=== PATIENT | female | born 1990 | race Caucasian/White ===

== ENCOUNTER 2023-12-26 13:32 | Emergency (ER) | payer BC, SELFPAY ==
--- NOTE | ~2023-12-26 | CT_ITS ---
EXAMINATION: CTA brain carotid DATE: 12/26/2023 15:37 INDICATION: double vision TECHNIQUE: Computed tomographic angiography (CTA) of the head was performed without and with 100 mL O mnipaque-350 intravenous contrast. CTA of the neck was performed with intravenous contrast. Automated exposure control and iterative reconstruction technique were employed. The dose-length product was 1 658.67 mGy-cm. Maximum intensity projection and volume rendered 3D-reconstructions were created by kirk land technologist on a separate workstation. COMPARISON: None. FINDINGS: CT BRAIN: No acute large vessel infarct, intracranial hemorrhage, mass, or hydrocephalus. Small retention cyst or polyp in the right middle ethmoid sinus. Minimal right sphenoid mucosal thickening. CTA HEAD: No large vessel occlusion, aneurysm, high flow vascular malformation, nidus or extravasation. CTA NECK: Aortic arch and proximal great vessels: Atherosclerotic calcifications at the visualized aortic arch and proximal great vessels. Right common carotid, carotid bifurcation, and internal carotid artery: No plaque.There is 0% stenosi s of the proximal right internal carotid artery relative to normal distal artery lumen diameter (NASC ET criteria). Left common carotid, carotid bifurcation, and internal carotid artery: No plaque.There is 0% stenosis of the proximal left internal carotid artery relative to normal distal artery lumen diameter (NASCET criteria). Vertebral arteries: No significant plaque or stenosis. Vertebral arteries co-dominant. Other findings: None. IMPRESSION: No large vessel intracranial occlusion, high-grade intracranial stenosis, or aneurysm. No carotid or vertebral artery occlusion, dissection, or significant stenosis. Reviewed, dictated and finalized at location K. IMPRESSION: No large vessel intracranial occlusion, high-grade intracranial stenosis, or an eurysm. No carotid or vertebral artery occlusion, dissection, or significant stenosis.
--- NOTE | ~2023-12-26 | XR_ITS ---
EXAMINATION: XR chest 1V portable Exam Date/Time: 12/26/2023 15:50 CDT HISTORY: dizziness, DOUBLE VISION Comparison: None. RESULT: Lines, tubes, and devices: None. Lungs and pleura: Clear. Cardiomediastinal silhouette: Normal. Other: No acute osseous or upper abdominal finding. IMPRESSION: No acute cardiopulmonary process. Reviewed, dictated and finalized at location K.
[2023-12-26 13:35] VITALS: BP 136/90; PULSE 84; RESP 16; TEMP 36.8; O2SAT 100
--- NOTE | 2023-12-26 14:39 | ED.EYEPROB ---
HPI - Eye Problem General Chief complaint: Eye Problems Stated complaint: visual problem Time Seen by Provider: 12/26/23 14:38 Source: patient and family Mode of arrival: ambulatory Limitations: no limitations History of Present Illness HPI Narrative: 33 years old white female came to the ED by private car with her because of right eye double vision. Patient reports history of dizziness, everything aches pains, intermittent, no aggravating or relieving factor started 6 days ago, was seen by her family physician started on meclizine without any improvement, scheduled to see ENT next week. Patient reports some blurry vision at the left eye since in the dizziness started scheduled to see her eye doctor next week. Today was driving taking the kids to school activities, started feeling blurry vision to the right eye and everything is doubled. Patient pulled over and her symptoms did not get better. Patient uses bifocal. Currently patient complaining of right double vision with moving object across visual field. Patient is telling me in the last few days been stumbling and falling over, denies any headache. History of migraine headache last episode was October 2023, patient believed this symptoms has nothing to do with her migraine headache. She denies any fever, chills,, vomiting, diarrhea, constipation, chest pain,OR shortness of breath. Related Data Allergies Allergy/AdvReac Type Severity Reaction Status Date / Time bupropion [From Wellbutrin] Allergy Unknown Verified 12/26/23 14:29 metoclopramide [From Reglan] Allergy Unknown Verified 12/26/23 14:29 Review of Systems Review of Systems: All systems reviewed & are unremarkable except as noted in HPI and below Exam Narrative: General appearance: Well-developed, well-nourished Patient cannot tolerate light barreto I hurt Skin: Normal color Head: Normocephalic, nontraumatic Eyes: Clear conjunctiva, PUPILS ARE EQUAL BILATERALLY, SLIGHTLY IS REACTION OF THE RIGHT PUPIL TO LIGHT, PATIENT COULD NOT TOLERATE THE LIGHT, THE ROOM IS DARK. ENT: Oropharynx normal, ears normal, nose normal Neck: Supple, nontender Chest and respiratory: Airway patent, no respiratory distress, no accessory muscle use Heart: Regular rate/rhythm Abdomen: Soft, nontender, no organomegaly, quiet bowel sounds Vascular: Normal peripheral pulses, normal capillary refill. 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 Date: 12/26/23 Consultations Consultation #1: Dr. Hutchins, neurologist at [facility] accepted patient lisandro, waiting for bed Date: 12/26/23 Time: 17:21 Vital Signs Vital signs: Vital Signs Temperature 36.8 C 12/26/23 13:35 Pulse Rate 84 12/26/23 13:35 Respiratory Rate 16 12/26/23 13:35 Blood Pressure 136/90 12/26/23 13:35 Pulse Oximetry 100 12/26/23 13:35 Oxygen Delivery Room Air 12/26/23 13:35 Temperature 36.8 C 12/26/23 13:35 Pulse Rate 85 12/26/23 17:38 Respiratory Rate 20 12/26/23 17:38 Blood Pressure 144/92 H 12/26/23 17:38 Pulse Oximetry 100 12/26/23 17:38 Oxygen Delivery Room Air 12/26/23 13:35 MDM - Eye Problem MDM Narrative Medical decision making narrative: patient came to the emergency room with dizziness, blurry left eye for the last 6 days today blue right eye with double visi
--- NOTE | 2023-12-26 14:41 | ECG_ITS ---
Measurements Intervals [place] Rate: 66 P: 8 IA: 145 QRS: 73 QRSD: 92 T: 66 QT: 406 QTc: 426 Interpretive Statements SINUS RHYTHM NORMAL ECG NO PREVIOUS ECG AVAILABLE FOR COMPARISON Electronically Signed On 12-26-2023 19:14:55 CDT by Jacobo Suero D.O.
[2023-12-26 15:14] LABS: Basophils Percent Auto 0.1 % (0.2-1.2); Eosinophils Absolute Auto 0.2 K/mm3 (0-0.3); Eosinophils Percent Auto 2.8 % (0-4.4); Hematocrit 41.6 % (37.0-47.0); Hemoglobin 13.3 g/dL (12.0-15.0); Immature Granulocyte Absolute 0.01 K/mm3 (0.00-0.031); Immature Granulocyte Percent A 0.1 % (0-0.5); Lymphocytes Absolute Auto 3.53 K/mm3 (0.9-3.2); Lymphocytes Percent Auto 52.5 % (18.3-44.2); Mean Corpuscular Hemoglobin 28.7 pg (26-34); Mean Corpuscular Volume 89.8 fl (80-100); Mean Platelet Volume 10.4 fl (7.4-10.4); Monocytes Absolute Auto 0.5 K/mm3 (0.1-0.6); Monocytes Percent Auto 6.7 % (2.6-8.5); Neutrophils Absolute Auto 2.5 K/mm3 (1.3-6.7); Neutrophils Percent Auto 37.8 % (45.5-73.1); Platelet Count Result 252 k/mm3 (150-375); Red Blood Count 4.63 M/mm3 (4.2-5.4); Red Cell Distribution Width 13.3 % (11.5-14.5); White Blood Count 6.7 K/mm3 (4.5-10.0)
[2023-12-26 15:22] LABS: Prothrombin Time 14.1 Seconds (11.1-14.7)
[2023-12-26 15:23] LABS: Partial Thromboplastin Time 30.3 Seconds (22.3-36.8)
[2023-12-26 15:26] LABS: Alanine Aminotransferase 17 U/L (6-35); Albumin Level 4.5 g/dL (3.5-5.1); Alkaline Phosphatase 50 U/L (38-126); Anion Gap 6 mmol/L (8-16); Aspartate Amino Transferase 21 U/L (14-36); Bilirubin,Total 0.8 mg/dL (0.2-1.3); Blood Urea Nitrogen 10 mg/dL (7-17); CRP < 0.5 mg/dL (<1.0); Calcium 9.6 mg/dL (8.4-10.2); Carbon Dioxide 29 mmol/L (22-30); Chloride 105 mmol/L (98-107); Estimated Glomerular Filt Rate > 60; Glucose 94 mg/dL (65-110); Potassium 3.6 mmol/L (3.4-5.0); Sodium 140 mmol/L (137-145)
[2023-12-26 15:30] LABS: Estimated Glomerular Filt Rate > 60
--- NOTE | 2023-12-26 16:00 | PC.NURSE ---
Pt informed that urine test is ordered, Pt said she is not able walk due to feeling dizzy and eyes needs to be kept closed and does not want to fall, bed seaman offered and pt agreed, privacy provided.
[2023-12-26 16:06] LABS: Erythrocyte Sedimentation Rate 9 mm/hr (0-20)
--- NOTE | 2023-12-26 16:25 | PC.NURSE ---
Pt observed being very anxious, all procedures explained and pt verbalized understanding. Lights turned off due to pt feeling very dizzy and vision very sensitive to light.
[2023-12-26 16:42] LABS: Amphetamine Screen Urine Positive (Negative); Barbiturate Screen Urine Negative (Negative); Benzodiazepines Screen Urine Negative (Negative); Cannabinoid Screen Urine Positive (Negative); Cocaine Screen Urine Negative (Negative); Methadone Screen Urine Negative (Negative); Opiate Screen Urine Negative (Negative); Phencyclidine Screen Urine Negative (Negative)
[2023-12-26 16:58] LABS: Bacteria Urine 2+ /hpf; Need Manual Microscopic Reviewed; Non Pathogenic Casts 0-2; Squamous Epithelial Cell Urine Moderate /hpf (Few)
[2023-12-26 17:03] LABS: Appearance Urine Cloudy (Clear); Color Urine Yellow (Yellow); Glucose Urine UA Negative (Negative); Ketones Urine Trace mg/dL (Negative); Protein Urine 1+ mg/dL (Negative)
[2023-12-26 17:04] LABS: Add Urine Microscopic? YES; Bilirubin Urine Negative (Negative); Blood Urine Trace-intact (Negative); Leukocyte Esterase Ur Negative LEU/UL (Negative); Nitrate Urine Negative (Negative); Urobilinogen Urine 0.2 mg/dL (<2.0)
[2023-12-26 17:38] VITALS: BP 144/92; PULSE 85; RESP 20; O2SAT 100
--- NOTE | 2023-12-26 20:08 | PC.NURSE ---
Patient requested to speak with underwriter mortgage loan about pending transfer to [facility]. Patient does not feel like a transfer to necessary and wants to only go home. Options offered, including AMA. Patient states that her insurance will not pay if she signs out AMA. It was explained that Dr. Freed feels it medically necessary to be transferred for neurology and ophthalmology.Patient screaming and crying that she feels like we are holding her hostage here. 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 Corey for taking away her rights . Mahi Gray RN witness.
--- NOTE | 2023-12-26 21:10 | PC.NURSE ---
Pt continues to verbalize that she does not agree with transfer at this time and refused to get on [facility] stretcher. Pt grabbed her belongings and when this RN asked if she had a ride she stated hes a long ways away so I will be waiting for a while. Pt proceeded to ambulate to waiting area with steady gait and no visible distress noted.
--- NOTE | 2023-12-26 22:00 | PC.NURSE ---
Pt continues to verbalize by yelling at staff, MD, HS, and EMS that she is not agreeable to [facility] transfer at this time. ERP at bedside multiple times since 1900, erp not agreeable to discharge patient. 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 Freed for holding her hostage and taking away her rights.
== END 2023-12-26 22:23 | disposition left against medical advice (07) ==
PROVIDERS: Emergency Provider Emergency Medicine
DX: H53.2 Diplopia (principal); R42 Dizziness and giddiness
CPT/HCPCS: 36415; 70496; 70498; 71045; 80053; 80307; 81001; 81025; 85025; 85610; 85652; 85730; 86140; 87077; 87086; 87088; 87181; 93005; 99284; Q9967